=== PATIENT | female | born 1955 | race Caucasian/White ===

== ENCOUNTER 2017-07-21 15:43 | Emergency (ER) | payer OTHER ==
[2017-07-21 16:26] LABS: BILIRUBIN,URINE NEGATIVE (NEGATIVE); GLUCOSE, URINE (UA) NEGATIVE (NEGATIVE); KETONES,URINE (UA) NEGATIVE (NEGATIVE); LEUKOCYTE ESTERASE, URINE LARGE (NEGATIVE); NITRITE,URINE NEGATIVE (NEGATIVE); OCCULT BLOOD,URINE TRACE-INTA (NEGATIVE); PH,URINE 5.5 PH (5.0-7.5); PROTEIN,URINE NEGATIVE (NEGATIVE); UROBILINOGEN,URINE 0.2 (NORMAL) E.U./dL (NORMAL)
[2017-07-21 16:37] LABS: CLARITY,URINE CLOUDY (CLEAR); SQUAMOUS EPITHELIAL CELL,UR RARE Squamous (<= Few)
[2017-07-21 16:38] LABS: BACTERIA,URINE Few /HPF (None Seen); EPITHELIAL CELLS,UR RARE Transitional /HPF (<= Few)
--- NOTE | 2017-07-21 17:08 | ED Physician Documentation ---
PD HPI BACK PAIN - Stated complaint Stated Complaint: LF MID BACK/SIDE PX - Chief complaint Chief Complaint: General - History obtained from History obtained from: Patient - History of Present Illness Timing - onset: How many days ago (2) Timing - duration: Days (2) Timing - details: Abrupt onset, Still present (has had pain left flank without injury, undulating severity not correlating with activity nor movement. Pain much worse today.), Waxing and waning Location: Mid, Lower, Left Quality: Pain, Sharp, Aching Associated symptoms: No: Fever, Weakness, Numbness Improves with: No: Rest, Position Worsened by: No: Movement, Lifting, Twisting Contributing factors: No: Lifting, Twisting Similar symptoms before: Has not had sx before Recently seen: Not recently seen Review of Systems Constitutional: denies: Fever, Chills, Myalgias Nose: denies: Rhinorrhea / runny nose, Congestion Throat: denies: Sore throat Cardiac: denies: Chest pain / pressure, Palpitations Respiratory: denies: Dyspnea, Cough GI: reports: Nausea. denies: Abdominal Pain, Vomiting, Constipation, Diarrhea : denies: Dysuria, Frequency, Hematuria Skin: denies: Rash Musculoskeletal: reports: Back pain. denies: Neck pain Neurologic: denies: Focal weakness, Numbness, Near syncope PD PAST MEDICAL HISTORY - Past Medical History Past Medical History: No - Past Surgical History Past Surgical History: Yes Ortho: Hip replacement /[employer]: Hysterectomy - Present Medications Home Medications: Ambulatory Orders Medication Instructions Recorded Confirmed Cephalexin [Keflex] 500 mg PO TID #18 capsule 07/21/17 HYDROcod/ACETAM 5/325 [Stambaugh 5/325] 1 tab PO Q6H PRN #15 tablet 07/21/17 - Allergies Allergies/Adverse Reactions: Allergies Allergy/AdvReac Type Severity Reaction Status Date / Time No Known Drug Allergies Allergy Verified 07/21/17 15:51 - Social History Does the pt smoke?: No Smoking Status: Former smoker Does the pt drink ETOH?: Yes Does the pt have substance abuse?: No - Immunizations Immunizations are current?: Yes PD ED PE NORMAL - Vitals Vital signs reviewed: Yes - General General: Alert and oriented X 3, Well developed/nourished, Other (appears quite uncomfortable. ) - HEENT HEENT: Pharynx benign - Neck Neck: Supple, no meningeal sign, No adenopathy - Cardiac Cardiac: RRR, No murmur - Respiratory Respiratory: Clear bilaterally - Abdomen Abdomen: Normal bowel sounds, Soft, Non tender, Non distended - Back Back: No spinal TTP, Other (left CVA tenderness to percussion) Results - Vitals Vitals: Oxygen O2 Source Room air - Labs Labs: Microbiology 07/21/17 16:11 Urine Culture - Final Urine,Random ESBL-producing E COLI Laboratory Tests 07/21/17 07/21/17 07/21/17 16:11 17:34 17:34 WBC 5.8 RBC 4.39 Hgb 14.0 Hct 41.8 MCV 95.1 MCH 32.0 H MCHC 33.6 RDW 13.7 Plt Count 146 MPV 7.6 L Neut # 3.1 Lymph # 2.1 Henderson # 0.4 Eos # 0.1 Baso # 0.0 Absolute Nucleated RBC 0.00 Nucleated RBC % 0.0 Sodium 137 Potassium 3.8 Chloride 104 Carbon Dioxide 25 Anion Gap 8.0 BUN 13 Creatinine 0.5 Estimated GFR (MDRD) 125 Glucose 105 H Calcium 9.3 Total Bilirubin 1.0 AST 18 ALT 19 Alkaline Phosphatase 81 Total Protein 6.4 L Albumin 3.8 Globulin 2.6 Albumin/Globulin Ratio 1.5 Lipase 13 L Urine Color YELLOW Urine Clarity CLOUDY Urine pH 5.5 Ur Specific [place] 1.010 Urine Protein NEGATIVE Urine Glucose (UA) NEGATIVE Urine Ketones NEGATIVE Urine Occult Blood TRACE-INTA Urine Nitrite NEGATIVE Urine Bilirubin NEGATIVE Urine Urobilinogen 0.2 (NORMAL) Ur Leukocyte Esterase LARGE H Urine RBC 6-10 H Urine WBC >25 H Ur Epithelial Cells RARE Transitional Ur Squamous Epith Cells RARE Squamous Urine Bacteria Few Ur Microscopic Review INDICATED Urine Culture Comments INDICATED - Rads (name of study) kub CT Radiology: Prelim report reviewed, EMP read contemporaneously (no stones on CT but streak artifact from hip replacements in bladder region. Her pain was characteristic of stone and was feeling better by time of CT, so might have passed it, versus having other cause, but none apparent. ) PD MEDICAL DECISION MAKING - ED course Complexity details: reviewed results, re-evaluated patient (much improved with pain meds and pain is mostly gone soon after. ), considered differential, d/w patient Departure - Departure Disposition: 01 Home, Self Care Clinical Impression: Flank pain, acute, Ureterolithiasis UTI (urinary tract infection) Qualifiers: Urinary tract infection type: acute cystitis Hematuria presence: without hematuria Qualified Code(s): N30.00 - Acute cystitis without hematuria Condition: Stable Record reviewed to determine appropriate education?: Yes Instructions: ED Flank Pain Uncertain Cause, ED Stone Renal Passed, ED UTI Cystitis Female Prescriptions: Cephalexin [Keflex] 500 mg PO TID #18 capsule HYDROcod/ACETAM 5/325 [Stambaugh 5/325] 1 tab PO Q6H PRN #15 tablet PRN Reason: Pain Comments: Drink lots of fluids. On your tests you do have some bladder infection and so we will treat with an antibiotic for that. This may have accounted for the flank pain if there was some kidney infection to. However the intensity of your pain and location would be characteristic of a kidney stone. At the time of the CT scan there was not any stones still present but the bladder areas obscured a bit on the scan from your hip replacements so he may have passed into the bladder and be present there. If that is true then the main pain should be over and just be some sore after this. There is some muscular component to her pain and so he may have some pain still with that and take ibuprofen or naproxen 2-3 times a day and add hydrocodone if needed for pain and ondansetron if needed for nausea. Recheck if not fully better over the next few days. Discharge Date/Time: 07/21/17 20:41
[2017-07-21] MEDS ORDERED: SODIUM CHLORIDE 0.9% 1,000 ML IV ONE (17:24)
[2017-07-21] MEDS ORDERED: ONDANSETRON 4 MG/2 ML VIAL IVP STA (17:24)
[2017-07-21] MEDS ORDERED: MORPHINE 10 MG/ML VIAL IVP STA (17:24)
[2017-07-21] MEDS ORDERED: KETOROLAC 60 MG/2 ML VIAL IVP STA (17:24)
[2017-07-21 17:42] LABS: BASOPHILS % (AUTO) 0.7 %; EOSINOPHILS # (AUTO) 0.1 10^3/uL (0.0-0.7); EOSINOPHILS % (AUTO) 2.2 %; LYMPHOCYTES # (AUTO) 2.1 10^3/uL (1.5-3.5); LYMPHOCYTES % (AUTO) 35.9 %; MEAN CORPUSCULAR HGB CONC 33.6 g/dL (32.0-36.0); MEAN CORPUSCULAR VOLUME 95.1 fL (81.0-99.0); MEAN PLATELET VOLUME 7.6 fL (7.9-10.8); MONOCYTES # (AUTO) 0.4 10^3/uL (0.0-1.0); MONOCYTES % (AUTO) 7.4 %; NEUTROPHILS # (AUTO) 3.1 10^3/uL (1.5-6.6); NEUTROPHILS % (AUTO) 53.8 %; PLT - PLATELET COUNT 146 10^3/uL (130-450); RED BLOOD COUNT 4.39 10^6/uL (4.20-5.40); RED CELL DISTRIBUTION WIDTH 13.7 % (12.0-15.0); WHITE BLOOD COUNT 5.8 x10^3/uL (4.8-10.8)
[2017-07-21 17:55] LABS: ALBUMIN 3.8 g/dL (3.2-5.5); ALBUMIN/GLOBULIN RATIO 1.5 (1.0-2.2); CALCIUM 9.3 mg/dL (8.5-10.3); CREATININE 0.5 mg/dL (0.4-1.0); TOTAL PROTEIN 6.4 g/dL (6.7-8.2)
[2017-07-21] MEDS ORDERED: cefTRIAXone 1 GM in SODIUM CHLORIDE 0.9% MINIBAG 100 ML IV STA (18:44)
--- NOTE | 2017-07-21 19:09 | CT Preliminary Report ---
Exam: CT ABDOMEN/PELVIS W/O IMPRESSION: 1. No cause for left flank pain demonstrated. Specifically no nephrolithiasis and While the distal ur eters are not well visualized due to streak artifact there is no hydronephrosis to suggest a distal u reteral stone is present. 2. Possible gallbladder sludge without calcified gallstones or CT evidence of acute cholecystitis. 3. Nonspecific 4 mm solid left upper lobe pulmonary nodule. Recommend follow-up of the described nodule(s) according to the following guidelines: Fleischner Society Recommendations 2017 MacMahon et al. Radiology 2017 Solid Nodules-Low Risk Patients: <6 mm (single or multiple) - No routine follow-up* 6-8 mm (single) -CT at 6-12 months, then consider CT at 18-24 months 6-8mm (multiple) -CT at 3-6 months, then consider at CT 18-24 months >8 mm (single) -Consider CT, PET/CT, or tissue sampling at 3 months >8 mm (multiple) -CT at 3-6 months, then consider CT at 18-24 months Solid Nodules-High Risk Patients: <6 mm (single or multiple) -Optional CT at 12 months* 6-8 mm (single) -CT at 6-12 months, then CT at 18-24 months 6-8mm (multiple) -CT at 3-6 months, then CT at 18-24 months >8 mm (single) -Consider CT, PET/CT, or tissue sampling at 3 months >8 mm (multiple) -CT at 3-6 months, then at 18-24 months *Nodules < 6mm do not require routine follow-up, but suspicious nodule morphology, upper lobe locatio n, or both may warrant 12 month follow-up Subsolid nodules: <6 mm (single, GG or part solid) -No routine follow-up >=6 mm (single GG) -CT at 6-12 months to confirm, then CT q2 years until 5 years >=6 mm (single part solid) -CT at 3-6 months to confirm, if unchanged and solid <6mm, annual CT for 5 years <6 mm (multiple GG or part solid) -CT at 3-6 months. If stable, consider CT at 2 and 4 years >=6 mm (multiple GG or part solid) -CT at 3-6 months. Subsequent management based on most suspicious nodule(s). Consider follow-up at 2 and 4 years for certain suspicious nodules <6mm. If solid component develo ps or growth, consider resection. [facility] SITE ID: [id number]
--- NOTE | 2017-07-21 19:15 | CT Report ---
EXAM: CT ABDOMEN AND PELVIS (CT KUB) EXAM DATE: 07/21/2017 06:25 PM. CLINICAL HISTORY: Left flank pain. COMPARISONS: None. TECHNIQUE: Routine axial helical CT imaging was performed through the abdomen and pelvis without IV c ontrast. Reconstructions: Coronal and sagittal. In accordance with CT protocol optimization, one or more of the following dose reduction techniques w ere utilized for this exam: automated exposure control, adjustment of mA and/or KV based on patient s ize, or use of iterative reconstructive technique. FINDINGS: Lung Bases: There is minimal bibasilar dependent atelectasis. A nonspecific 4 mm solid pulmonary nodu le is present within the lingula (6/3). Right Kidney/Ureter: No hydronephrosis or hydroureter. No definite calculi. Specifically there are no renal calculi. The distal ureter is difficult to evaluate due to extensive streak artifact from bila teral total hip arthroplasties, though the absence of hydroureter suggests the absence of a ureteral calculus. There is minimal perinephric stranding, which is symmetric with the left. No contour deform ing lesion. Left Kidney/Ureter: No hydronephrosis or hydroureter. No definite calculi. Specifically there are no renal calculi. The distal ureter is difficult to evaluate due to extensive streak artifact from bilat eral total hip arthroplasties, though the absence of hydroureter suggests the absence of a ureteral c alculus. There is minimal perinephric stranding, which is symmetric with the right. No contour deform ing lesion with possible partial duplication versus prominent column of Ronald. Other Solid Organs: Noncontrast images of the solid organs are grossly unremarkable. There is a small splenule is present near the pancreatic tail measuring 10 mm (3/51). Elongated right hepatic lobe, l ikely normal variant Duncan's lobe. Gallbladder/Bile Ducts: Possible sludge within the gallbladder lumen. No CT evidence of acute cholecy stitis. No abnormal biliary ductal dilatation. Peritoneal Cavity: No free fluid, free air or flavio adenopathy. Bowel is grossly unremarkable. Gastri c lap band is in customary position. Pelvic Organs: Sensitivity and evaluation is limited due to extensive streak artifact from bilateral total hip arthroplasties. No bladder stones or wall thickening. Patient appears post hysterectomy. No adnexal mass demonstrated.. Vasculature: No abdominal aortic aneurysm. There is trace calcific atherosclerosis. Other: No acute osseous abnormality or suspicious focal osseous lesion. There is straightening of the typical lumbar lordosis. A lucency within the T12 vertebral body may represent an intraosseous heman gioma. Bilateral total hip arthroplasties are partially visualized. -Lap band port present over the left upper quadrant abdomen. IMPRESSION: 1. No cause for left flank pain demonstrated. Specifically no nephrolithiasis and while the distal ur eters are not well visualized due to streak artifact there is no hydronephrosis to suggest a distal u reteral stone is present. 2. Possible gallbladder sludge without calcified gallstones or CT evidence of acute cholecystitis. 3. Nonspecific 4 mm solid left upper lobe pulmonary nodule. Recommend follow-up of the described nodule(s) according to the following guidelines: Fleischner Society Recommendations 2017 MacMahon et al. Radiology 2017 Solid Nodules-Low Risk Patients: <6 mm (single or multiple) - No routine follow-up* 6-8 mm (single) -CT at 6-12 months, then consider CT at 18-24 months 6-8mm (multiple) -CT at 3-6 months, then consider at CT 18-24 months >8 mm (single) -Consider CT, PET/CT, or tissue sampling at 3 months >8 mm (multiple) -CT at 3-6 months, then consider CT at 18-24 months Solid Nodules-High Risk Patients: <6 mm (single or multiple) -Optional CT at 12 months* 6-8 mm (single) -CT at 6-12 months, then CT at 18-24 months 6-8mm (multiple) -CT at 3-6 months, then CT at 18-24 months >8 mm (single) -Consider CT, PET/CT, or tissue sampling at 3 months >8 mm (multiple) -CT at 3-6 months, then at 18-24 months *Nodules < 6mm do not require routine follow-up, but suspicious nodule morphology, upper lobe locatio n, or both may warrant 12 month follow-up Subsolid nodules: <6 mm (single, GG or part solid) -No routine follow-up >=6 mm (single GG) -CT at 6-12 months to confirm, then CT q2 years until 5 years >=6 mm (single part solid) -CT at 3-6 months to confirm, if unchanged and solid <6mm, annual CT for 5 years <6 mm (multiple GG or part solid) -CT at 3-6 months. If stable, consider CT at 2 and 4 years >=6 mm (multiple GG or part solid) -CT at 3-6 months. Subsequent management based on most suspicious nodule(s). Consider follow-up at 2 and 4 years for certain suspicious nodules <6mm. If solid component develo ps or growth, consider resection. [facility] Referring Provider Line: [phone] SITE ID: [id number]
[2017-07-21 19:30] VITALS: BP 131/81
[2017-07-21] MEDS ORDERED: ONDANSETRON ODT 4 MG Prepack 2 TL PRN (20:15)
[2017-07-21] MEDS ORDERED: HYDROcod/ACET 5/325 Prepack 4 PO STA (20:15)
== END 2017-07-21 20:41 | disposition home or self-care (01) ==
LOC: ED 15:43
DX: N20.1 Calculus of ureter (principal); Z87.891 Personal history of nicotine dependence; Z96.649 Presence of unspecified artificial hip joint
CPT/HCPCS: 36415; 74176; 80053; 81001; 81003; 83690; 85025; 87086; 87181; 96361; 96365; 96375; 99283; 99284